=== PATIENT | male | born 1960 | race Caucasian/White ===

== ENCOUNTER 2016-11-11 17:57 | Emergency (ER) | payer BC, OTHER ==
[~2016-11-11] VITALS: Ht 177.8 cm; Wt 113.3 kg
[2016-11-11] MEDS ORDERED: EP225NB05 INH (18:36)
[2016-11-11] MEDS ORDERED: ASPI1TAB22 PO (18:36)
[2016-11-11] MEDS ORDERED: SODIUM CHLORIDE FLUSH 10 ML SYR IV PRN (18:45)
[2016-11-11] MEDS: SODIUM CHLORIDE FLUSH 3 ML SYR IV PRN ×2 (18:57→20:20)
[2016-11-11 18:59] LABS: BASOPHILS % (AUTO) 0 % (0-2); EOSINOPHILS # (AUTO) 0.2 10^3uL; EOSINOPHILS % (AUTO) 2 % (0-4); LYMPHOCYTES # (AUTO) 0.5 X10^3; MEAN CORPUSCULAR HEMOGLOBIN 28.1 PG (26.0-34.0); MEAN CORPUSCULAR HGB CONC 33.8 g/dL (31.0-37.0); MEAN CORPUSCULAR VOLUME 83 FL (80-100); MONOCYTES # (AUTO) 1.1 X10^3; MONOCYTES % (AUTO) 9 % (3-11); NEUTROPHILS # (AUTO) 9.9 X10^3; NEUTROPHILS % (AUTO) 84 % (51-67); PLATELET COUNT 153 10^3uL (150-450); WHITE BLOOD COUNT 11.78 10^3uL (4.0-11.0)
--- NOTE | 2016-11-11 19:00 | NUR ---
PATIENT HAS BEEN PROVIDED WITH URINAL, PT VERBALIZES UNDERSTANDING OF HOW TO USE URINAL, PT SAYS IT "MAY BE A LITTLE BIT" BUT HE'LL TRY TO PROVIDE URINE SPECIMEN.
[2016-11-11 19:10] LABS: ALBUMIN 3.6 g/dL (3.4-5.0); ANION GAP 16.1 MEQ/L (3-15); CALCULATED IONIZED CALCIUM 3.7 mg/dL (3.8-4.6); TOTAL PROTEIN 6.9 g/dL (6.4-8.5)
--- NOTE | 2016-11-11 19:49 | Diagnostic Imaging Report ---
EXAMINATION: CHEST (PA AND LATERAL) CLINICAL INDICATION: 56-year-old male, shortness of breath, edema, cough. COMPARISON: None. FINDINGS: Heart size and mediastinal contours are grossly unremarkable. There is no identified pneumothorax. There is very mild blunting of the posterior costophrenic angles which may relate to trace pleural effusions. There are slightly prominent interstitial markings which may relate to mild pulmonary interstitial edema. Comparison radiographs are unavailable to assess for potential stability. There is no identified additional alveolar consolidation. IMPRESSION: Very mild blunting of the posterior costophrenic angles which may indicate trace pleural effusions. Slightly prominent interstitial opacities which may relate to mild pulmonary vascular congestion. Comparisons are unavailable to assess for potential stability. Dictated by: Dictated on workstation # [id number]
[2016-11-11] MEDS ORDERED: FUROSEMIDE 40 MG/4 ML (LASIX) VIAL IV ONE (20:10)
[2016-11-11] MEDS ORDERED: ASPIRIN 81 MG CHEW (CHILDREN'S ASA) PO ONE (20:10)
[2016-11-11] MEDS ORDERED: NITROGLYCERIN DRIP 25 MG/D5W 250 ML IV PRN (20:15)
[2016-11-11] MEDS ORDERED: SODIUM CHLORIDE 250 ML IV SCH (20:30)
--- NOTE | 2016-11-11 20:59 | NUR ---
NTG INFUSION RATE INCREASED TO 10 MCG/MIN (6 ML/HR). PT CONTINUES TO DENY ANY CHEST PAIN OR NAUSEA. DOES REPORTS SOME "TINGLING" IN FEET.
[2016-11-11 21:04] LABS: BILIRUBIN,URINE Negative (Negative); CLARITY,URINE Clear; GLUCOSE, URINE (UA) Negative (Negative); LEUKOCYTE ESTERASE ,URINE Negative (Negative); PH,URINE 5.5 (5.0 - 8.0); UROBILINOGEN,URINE 0.2 mg/dL (0.2-1.0)
[2016-11-11 21:11] LABS: COLOR,URINE Dark Yellow
--- NOTE | 2016-11-11 21:17 | NUR ---
Dr. Amezquita has seen last BP and MAP reading and says to wait, for now, and not increase NTG for present.
[2016-11-11 21:27] LABS: RBC,URINE 0-2 /HPF; URINE CENTRIFUGED VOLUME 12 mL
[2016-11-11 21:28] LABS: AMORPHOUS SEDIMENT,UR 1+ /HPF; COARSE GRANULAR CASTS,URINE 2+ /LPF
--- NOTE | 2016-11-11 21:35 | NUR ---
NTG INFUSION RATE INCREASED TO 20 MCG/MIN PER DR. HARRY INSTRUCTION. Samuel BELTRE, SENIOR BUSINESS DEVELOPMENT ANALYST, GIVEN REPORT AND IS UP TO DATE WITH PATIENT INFORMATION/MEDICATIONS.
[2016-11-11 21:52] VITALS: BP 195/120
== END 2016-11-11 21:59 | disposition short-term general hospital (02) ==
LOC: ED 18:04
DX: I16.1 Hypertensive emergency (principal); I11.0 Hypertensive heart disease with heart failure; I50.9 Heart failure, unspecified; N17.9 Acute kidney failure, unspecified; R79.89 Other specified abnormal findings of blood chemistry; F17.210 Nicotine dependence, cigarettes, uncomplicated
CPT/HCPCS: 36415; 71020; 80053; 81003; 81015; 82550; 82553; 83880; 84443; 84484; 85025; 85610; 86140; 87486; 87581; 87633; 87798; 93005; 96374; 99284; J1940; J7050; 93010; 99285

== ENCOUNTER → 2016-11-11 | Outpatient (CLI) | payer BC ==
[~2016-11-11] MED LIST: ASPI1TAB22 PO; EP225NB05 INH
== END ==
LOC: EMS 21:50
PROVIDERS: ATTEND Family Medicine
DX: I50.9 Heart failure, unspecified (principal); N19 Unspecified kidney failure; R79.89 Other specified abnormal findings of blood chemistry; I10 Essential (primary) hypertension

== ENCOUNTER → 2016-12-31 | Outpatient (CLI) | payer BC | LOC: RAD 12:28 | PROVIDERS: ATTEND Family Medicine | DX: I50.9 Heart failure, unspecified (principal) | CPT/HCPCS: 93306 ==